=== PATIENT | female | born 1975 | race Caucasian/White ===

== ENCOUNTER 2025-01-31 17:28 | Emergency (ER) | payer MEDICARE ==
[~2025-01-31] VITALS: Ht 165.1 cm; Wt 96.3 kg
--- NOTE | 2025-01-31 17:51 | ELECTROCARDIOGRAPH REPORT ---
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 Levi Pisano Measurements Intervals [place] Rate: 116 P: 0 [place]: 0 QRS: 10 QRSD: 106 T: 88 QT: 329 QTc: 458 Interpretive Statements Atrial fibrillation ST elevation, consider inferior injury Electronically Signed On 02-05-2025 19:23:[address] Levi Pisano Please click the below link to view image of tracing.
[2025-01-31 18:07] LABS: MEAN PLATELET VOLUME 7.8 FL (7.4-10.4); RED CELL DISTRIBUTION WIDTH 13.8 % (11.5-14.5)
--- NOTE | 2025-01-31 18:26 | RADIOLOGY REPORT ---
CHEST RADIOGRAPH Indication: CP Technique: DI CHEST,SINGLE VIEW Comparison: None FINDINGS: 1 The cardiac silhouette is unremarkable. The lungs demonstrate right infrahilar/ right basilar airspace opacities. The pulmonary vasculature is unremarkable. There is no pleural effusion. There is no pneumothorax. IMPRESSION: Right infrahilar/ right basilar airspace opacification. Follow-up to resolution.
[2025-01-31 18:28] LABS: CREATININE 0.73 MG/DL (0.40-0.90); PRO BRAIN NATRIURETIC PEPTIDE < 30 PG/ML (0-125); TOTAL CARBON DIOXIDE 17.6 MMOL/L (24-32); eCRCL 86 ML/MIN; eGFR 85 ML/MIN
[2025-01-31] MEDS ORDERED: ACET-1008 PO (18:51)
[2025-01-31] MEDS ORDERED: IBUP-2766 PO (18:51)
[2025-01-31] MEDS ORDERED: ASPI-1265 PO (18:51)
--- NOTE | 2025-01-31 19:07 | Physician Documentation ---
History of Present Illness General Chief Complaint: Shortness of Breath Stated Complaint: CHEST PAIN Time Seen by MD: 18:15 Mode of Arrival: POV History of Present Illness Initial Comments This is a very pleasant 49-year-old female who presents for evaluation of generalized malaise, body aches, subjective fever, nausea, vomiting, as well as shortness a breath for the last five days. She has been evaluated at , received fluids, was discharged. However her symptoms have continued. She has not been tested for COVID. She isn't vaccinated against COVID. She does report shortness a breath, does not have prior history of asthma or COPD. The shortness a breath is exertional, not positional. She uses marijuana daily, smokes it. No prior history of cannabinoid hyperemesis. Medication Reconciliation Allergies: Coded Allergies: Penicillins (Verified Allergy, Unknown, 01/31/25) Scheduled Aspirin (Aspirin), 1 TAB PO DAILY, (Reported) Ibuprofen 100MG/5ML Susp* (Motrin 100 MG/5ML Susp.*), 5 ML PO Q8H, (Reported) Scheduled PRN Acetaminophen (Tylenol), 1 TAB PO QDAY PRN PRN for pain or fever, (Reported) Review of Systems ROS 10 point review of systems was performed and unless noted above in HPI is negative for acute process/complaint. Physical Exam Physical Exam Vital Signs: Temperature: 98.0, Source: Oral, Heart Rate: 113, Respiratory Rate: 18, BP: 146/100, Pulse Oximetry: 95, Weight: 96.300 Oxygen Flow Rate: 0 Physical Exam GENERAL: Awake, alert, oriented, GCS 15, no apparent distress, non-toxic appearing, answers questions, follows commands appropriately. Examined in bed 11., accompanied by has been in child HEENT: Atraumatic, normocephalic, pupils equal, extraocular muscles intact, sclerae anicteric, mucus membranes moist, oropharynx is clear, no stridor. NECK: supple, full active range of motion, trachea midline, no thyromegaly, no lymphadenopathy, no JVD. CARDIOVASCULAR: Tachycardic and regular rate/rhythm, no murmurs/gallops/rubs, Pulses are 2+ in all extremities and symmetric. Capillary refill less than 2 seconds. PULMONARY: Slightly labored, decreased air movement , mild respiratory distress, speaking in full sentences, bilateral right greater than left wheezing, no ronchi, no rales, no accessory muscle use. GASTROINTESTINAL: Soft, diffusely tender without guarding or rebound, non- distended, normal active bowel sounds, no organomegaly, no pulsatile masses, no CVA tenderness. NEUROLOGIC: Lucid with normal mental status. Normal facial symmetry. Moves all extremities symmetrically and with purpose. No truncal ataxia. Speech is fluid without evidence of dysarthria or aphasia, no focal deficits appreciated. MUSCULOSKELETAL: There is full range of motion of all extremities. There is no joint pain or joint swelling or joint erythema. There is no muscle pain or tenderness or swelling. EXTREMITIES: warm, well-perfused, no cyanosis, no clubbing, no edema, no acute deformities. Skin: warm, dry, no rashes or lesions, no jaundice, no petechiae orpurpura. No ecchymosis. PSYCHIATRIC: Normal affect, normal insight, normal concentration. Focused exam: [] Progress Results/Orders Results/Orders Orders - OSVALDO BARKLEY DO Covid19 Binax Poc Result Entry (01/31/25 18:58) * Rt Notification Q1H (01/31/25 19:09) Cta Chest Abdomen Pelvis (01/31/25 19:43) Straight Cath For Urine Sample (01/31/25 19:59) Completed Orders - OSVALDO BARKLEY DO Normal Saline 1000ml (0.9% Sodium Chlori (01/31/25 19:00) Ondansetron Inj. (Zofran 4mg/2ml Vial) (01/31/25 19:00) Haloperidol Lact. (Haldol) (01/31/25 19:00) Magnesium Sulf-Water 2g/50ml (Magnesium (01/31/25 19:00) Albuterol 2.5mg/3ml Nebule (Proventil 2. (01/31/25 19:10) Methylprednisolone Sod Succ (Solumedrol (01/31/25 19:10) Morphine 4mg/Ml Inj. (Morphine Inj.) (01/31/25 19:35) D-Dimer (01/31/25 19:33) Cta Chest Abdomen Pelvis (01/31/25 19:43) Hcg, Ur Ql (01/31/25 19:59) Drug Screen, Urine (01/31/25 19:59) Ua W/Microscopic, Cult If Ind (01/31/25 21:21) Lorazepam Tablet (Ativan Tablet) (01/31/25 23:00) Medications Received in ER Medications (Trade) Dose Ordered Sig/Stu Route PRN Reason Start Time Stop Time Status Last Admin Dose Admin Sodium Chloride 1,000 ml @ 1,000 mls/hr ONCE ONCE IV 01/31/25 19:00 01/31/25 19:59 DC 01/31/25 19:30 1,000 MLS/HR (Zofran 4mg/2ml vial) 8 mg ONCE ONCE IV 01/31/25 19:00 01/31/25 19:02 DC 01/31/25 19:19 8 MG (Haldol) 5 mg ONCE ONCE IVH 01/31/25 19:00 01/31/25 19:02 DC 01/31/25 19:25 5 MG Magnesium Sulfate 50 ml @ 100 mls/hr ONCE ONCE IV 01/31/25 19:00 01/31/25 19:29 DC 01/31/25 19:28 100 MLS/HR (Proventil 2.5 MG/3ML nebule) 10 mg ONCE ONCE NEB 01/31/25 19:10 01/31/25 19:12 DC 01/31/25 19:48 10 MG (SoluMEDROL 125mg inj) 125 mg ONCE ONCE IV 01/31/25 19:10 01/31/25 19:12 DC 01/31/25 19:23 125 MG (morphine inj.) 4 mg ONCE ONCE IV 01/31/25 19:35 01/31/25 19:36 DC 01/31/25 19:35 4 MG (Ativan tablet) 1 mg ONCE ONCE PO 01/31/25 23:00 01/31/25 23:01 DC 01/31/25 23:01 1 MG Vital Signs 01/31/25 01/31/25 01/31/25 01/31/25 17:38 18:00 18:13 19:35 Temp 98.0 Pulse 113 Resp 30 18 22 B/P (MAP) 146/100 Pulse Ox 93 95 O2 Delivery Nasal Cannula* O2 Flow Rate 0 6 FiO2 N/A 01/31/25 01/31/25 01/31/25 01/31/25 19:55 19:55 20:38 20:59 Temp 98.0 Pulse 103 110 102 Resp 18 18 24 B/P (MAP) 107/88 (94) Pulse Ox 95 93 96 O2 Flow Rate 8.0 8.0 FiO2 N/A 01/31/25 01/31/25 01/31/25 21:59 23:01 23:47 Temp 98.0 98.0 Pulse 122 113 Resp 20 18 16 B/P (MAP) 160/94 (116) 154/97 (116) Pulse Ox 90 96 O2 Flow Rate 3.0 3.0 FiO2 N/A N/A Laboratory Tests Test 01/31/25 18:00 01/31/25 20:16 01/31/25 21:21 01/31/25 21:27 White Blood Count 14.2 H Red Blood Count 5.64 H Hemoglobin 17.0 H Hematocrit 50.5 H Mean Corpuscular Volume 89.5 Mean Corpuscular Hemoglobin 30.1 Mean Corpuscular Hemoglobin Concent 33.6 Red Cell Distribution Width 13.8 Platelet Count 420 Mean Platelet Volume 7.8 Neutrophils (%) (Auto) 73.8 Lymphocytes (%) (Auto) 17.7 L Monocytes (%) (Auto) 7.3 Eosinophils (%) (Auto) 0.6 Basophils (%) (Auto) 0.6 Neutrophils # (Auto) 10.5 H Lymphocytes # (Auto) 2.5 Monocytes # (Auto) 1.0 H Eosinophils # (Auto) 0.1 Basophils # (Auto) 0.1 CBC Comment D-Dimer 1.30 H D-Dimer Comment Sodium Level 134 L Potassium Level 3.6 Chloride Level 101 Carbon Dioxide Level 17.6 L Anion Gap 15 Blood Urea Nitrogen 18 Creatinine 0.73 Estimated GFR/1.73 m2 85 BUN/Creatinine Ratio 24.7 H Glucose Level 146 H Calcium Level 9.4 Troponin I High Sensitivity 4 5 4 Pro-B-Type Natriuretic Peptide < 30 Albumin 3.4 Lipase 18 Chemistry Comments Troponin I High Sens Percent Delta 25 20 Troponin I Hi Sens Absolute Change 1 -1 Urine Specimen Description Non-specified Urine Color Yellow Urine Clarity Slightly cloudy Urine pH 6.0 Urine Specific [place] >=1.030 Urine Protein 100 H Urine Glucose (UA) Negative Urine Ketones >=80 Urine Occult Blood Moderate H Urine Nitrite Negative Urine Bilirubin Small Urine Urobilinogen 0.2 Urine Leukocyte Esterase Negative Urine RBC 3-10 Urine WBC 0-4 Urine Squamous Epithelial Cells Many Urine Bacteria 3+ Urine Culture Indicated Not ind Volume Urine Centrifuged 10 ml Urine HCG, Qualitative Negative Urine Comment Urine Opiates Screen Positive Urine Methadone Screen Negative Urine Fentanyl Screen Negative Urine Barbiturates Screen Negative Urine Phencyclidine Screen Negative Urine Amphetamines Screen Negative Urine Benzodiazepines Screen Negative Urine Cocaine Screen Negative Urine Cannabinoids Screen Positive Drug Screen Comment EKG/XRAY/CT/US/VASC/MRI EKG : Additional Comment EKG was obtained and interpreted by myself showing what appears to be sinus tachycardic, rate of 16, normal NH interval, narrow QRS, no QT prolongation, normal axis, no STEMI. Medical Decision Making Findings Facility Status: ED Holds, RME process The plan was discussed with the patient, who demonstrates clear understanding of the plan and is in agreement with the plan unless otherwise noted in the chart. All questions have been answered, all concerns were addressed unless otherwise documented. I was available throughout their ED stay for frequent reassessment and questions. Differential Diagnoses (considered and possible or likely): [Viral gastroenteritis, COVID, influenza, RSV, upper respiratory infection with the top of the viruses, bacterial pneumonia, dehydration, electrolyte derangement, asthma/COPD, less likely CHF or ACS] ??Differential Diagnoses (considered and unlikely, not requiring evaluation currently): [See above] MDM Data Please see [facility] for the following: Independent Historians and external Records Review. Historian: [Patient] Independent Historians: ?[Has been, record review] Medication Management: [Reviewed medication list] Social History and determinants: [Reviewed] Please see the body of the note for the following: Any independent interpretatio ns of ECG, imaging studies. All vitals signs/haemodynamics, ordered tests were independently reviewed and interpreted by myself. Nursing triage complaint and vitals reviewed, additional nursing notes were reviewed as available and I agree unless otherwise noted or documented in contradiction in the chart Vital Signs: Independently reviewed Labs: Independently interpreted Imaging: Independently interpreted Old Medical Records: Independently reviewed, see HPI for relevant summary and information Pulse Oximetry: [90% on 2 L] interpreted as [hypoxia] by me [Winding Inspector And Tester: Tachycardic Rate, Regular rhythm, no ectopy, sinus tachycard ia. reviewed and interpreted by me] Additionally notably showing: [Hemodynamics reviewed. The patient isn't febrile, tachycardic, improved with the pain management. No evidence of hypotension respiratory distress. Laboratory studies showed mild leukocytosis, elevated hemoglobin. Chemistry notable for dehydration. Glucose slightly elevated. Multiple troponins are negative. BNP is undetectable. Lipase is normal. D-dimer is elevated. UA is nondiagnostic for UTI. She is not . You tox is positive for opioids and cannabinoid. Chest x-ray initially showed questionable right basilar opacities. Because of elevated D-dimer CT angiography was obtained. It shows no pneumonia, shows some atelectasis and scarring. Thickened stomach. Proximal duodenum. This could be inflammatory process. Neoplasia can not be ruled out.] Tests considered but not ordered include: [See above] Social Determinants of Health Impact: Patient was evaluated in [facility], [facility] [place] access to healthcare due to below par ratio of patient to medical providers. [] Comorbid Conditions Impacting Present Evaluation and Care/Treatment: [None reported by the patient] Management Discussions with other Healthcare Providers: [None] Treatment and Disposition Medication Management (Given or considered): [Pain management]. See EMR for details Consideration for Hospitalization/Escalation/Deescalation of Care: Admission for observation has been considered, [however the patient is able to tolerate p.o., their symptoms are controlled, they are able to rely on oral medications, and their chief complaint/diagnosis can be managed on outpatient basis.] ?ED Course:?[Markedly improved.] ?Shared decision making:?[Patient is hemodynamically stable for discharge home with follow with their primary care provider. [ ] Specific and cautious return precautions provided and discussed with full understanding. Any incidental findings were also discussed and follow up recommendations given. [] All ques tions answered. Patient/family were able to verbalize back return precautions. Patient/family agree to plan. Copies of imaging and laboratory studies were provided.] Code status:?FULL Please see the full Electronic Medical Record for full details of nursing documentation, medications list, other records of complete past medical history and conditions, vital signs, laboratory studies, and any radiologic study interpretations by radiologists. Portions of this note were completed using [employer] dictation software and as a result there may exist minor errors in spelling. I have reviewed elements of past family and social history and agree as included in note. Departure Disposition: 01 HOME / SELF CARE / HOMELESS Impression: Primary Impression: Epigastric abdominal pain Additional Impressions: Nausea and vomiting Asthma exacerbation Condition: Improved Discharge Instructions: Asthma, Adult, [id number], Gastritis, Adult Additional Instructions: You need to follow-up with your primary care provider. Take the steroid Dosepak, use inhaler when you develop shortness a breath. You definitely had wheezing today that require steroids and breathing treatment. This may be a new diagnosis of asthma for you. With respect to her abdominal pain your CT showed a thickened stomach and proximal duodenum, with a this is concerning for gastritis/duodenitis. However, in very rare cases, thickening of stomach may be concerning for a stomach cancer. Follow-up with the PCP, get referral for EGD with a identification technician. Referrals: NO PRIMARY CARE PROVIDER (PCP) Prescriptions ONDANSETRON ODT 4mg tablet (ONDANSETRON ODT) 4 Mg Tab.rapdis 1 TAB PO Q6H PRN PRN for nausea/vomiting for 4 Days, #16 TAB 0 Refills Prov: OSVALDO BARKLEY DO 02/01/25 Dicyclomine HCl (Dicyclomine HCl) 20 Mg Tablet 1 TAB PO Q8H for irritable bowel symptoms for 10 Days, #30 TAB 0 Refills Prov: OSVALDO BARKLEY DO 02/01/25 Mag Hydrox/Al Hydrox/Simeth (Maalox Advanced Max-Str Susp) 400 Mg-400 Mg-40 Mg/5 Ml Oral.susp 20 ML PO Q6H for 5 Days, #355 ML 0 Refills Prov: OSVALDO BARKLEY DO 02/01/25 Pantoprazole Sodium (Protonix) 20 Mg Tablet.dr 1 TAB PO DAILY for 30 Days, #30 TAB 0 Refills Prov: OSVALDO BARKLEY DO 02/01/25 Albuterol Sulfate (Ventolin Hfa) 90 Mcg Hfa.aer.ad 2 PUFFS INH Q4HPRN PRN for wheezing for 30 Days, #18 GM 0 Refills Prov: OSVALDO BARKLEY DO 02/01/25 Methylprednisolone (Medrol Dosepak) 4 Mg Tab.ds.pk 0 PO UD, #21 TAB 0 Refills take 6 Pills Day 1, 5 Pills Day 2, 4 Pills Day 3, 3 Pills Day 4, 2 Pills Day 5 and 1 pill Day 6 Prov: OSVALDO BARKLEY DO 02/01/25 Education Educated: Patient Educated regarding: diagnosis, treatment, prognosis, need for follow up Signature Scribe Signature: No scribe Attestation: This note accurately reflects clinical decisions, work performed by myself, DO FILIPPO Adam NICHOLAS M DO Jan 31, 2025 19:07
[2025-01-31] MEDS: ondansetron/PF 4mg/2ml inj IV ONE (19:19)
[2025-01-31] MEDS: haloperidol lactate 5mg/ml inj IVH ONE (19:25)
[2025-01-31] MEDS: magnesium sulf-water 2g/50mL 50 ML IV ONE (19:28)
[2025-01-31] MEDS: normal saline 1000ml 1,000 ML IV ONE (19:30)
[2025-01-31] MEDS: morphine 4 MG/ML inj SYRINge IV ONE (19:35)
[2025-01-31] MEDS: albuterol 2.5 MG/3 ML nebule NEB ONE (19:48)
[2025-01-31 19:55] VITALS: PULSE 103; RESP 18; O2SAT 95
[2025-01-31 20:38] VITALS: PULSE 110; RESP 18; O2SAT 93
[2025-01-31 21:49] LABS: URINE HCG NEGATIVE (NEG)
[2025-01-31 21:55] LABS: LEUKOCYTE ESTERASE ,URINE NEGATIVE (Neg); NITRITES, URINE NEGATIVE (Neg); OCCULT BLOOD,URINE MODERATE (Neg)
[2025-01-31 21:57] LABS: UA COLLECTION TYPE NON-SPECIFIED
[2025-01-31 22:00] LABS: URINE AMPHETAMINE SCREEN NEGATIVE (Neg); URINE BARBITUATE SCREEN NEGATIVE (Neg); URINE BENZODIAZEPINES SCREEN NEGATIVE (Neg); URINE CANNABINOID SCREEN POSITIVE (Neg); URINE COCAINE SCREEN NEGATIVE (Neg); URINE METHADONE SCREEN NEGATIVE (Neg); URINE OPIATE SCREEN POSITIVE (Neg); URINE PHENCYCLIDINE SCREEN NEGATIVE (Neg)
[2025-01-31 22:05] LABS: SQUAMOUS EPITHELIAL CELL,UR MANY /LPF (FEW)
--- NOTE | 2025-01-31 23:56 | RADIOLOGY REPORT ---
EXAM: CT CTA CHEST ABDOMEN PELVIS W/ IV CONTRASTHistory: Chest pain out of proportion Comparison Study: None TECHNIQUE: Coverage: Thorax IV contrast: Administered Phases: Arterial Multiplanar 3-D Maximum Intensity Projection images (MIP) reconstructions were created by the technologist in the coronal and sagittal planes as part of the CT angiography protocol. Adverse events: None Medication laboratory values were reviewed to verify the patient meets criteria for contrast administration. All CT scans at this medical facility are performed using dose modulation techniques as appropriate to a performed exam including the following: Automated exposure control was utilized; adjustment of the MA and/or KV according to patient size; and use of iterative reconstruction technique. Radiation dose: CTDIvol 30.19 mGy, DLP 2282.33 mGy*cm. Findings: CT chest: Evaluation is degraded by respiratory motion. Lungs: There is minimal atelectasis/ scarring. Pleura: Unremarkable Heart/Great vessels: No cardiomegaly or pericardial effusion. The aorta is unremarkable. Mediastinum: Unremarkable. Soft tissues/Bones: Unremarkable CT abdomen/pelvis: Liver: Unremarkable. Spleen: Unremarkable. Pancreas: Unremarkable. Gallbladder: There is minimal stranding about the inferior aspect of the gallbladder. No gallbladder wall thickening. Adrenals: Unremarkable. Kidneys: Unremarkable. Pelvic Viscera: Prior hysterectomy. Vasculature: The aorta is unremarkable. Retroperitoneum: Unremarkable. Bowel: There is wall thickening and stranding about the distal stomach/ proximal duodenum. There is a dilated appearance of the proximal duodenum. Nonspecific fluid-filled appearance throughout the small bowel. Musculoskeletal: Unremarkable. Soft tissues: Unremarkable. Impression: 1. No acute vascular abnormality identified. 2. Wall thickening and stranding about the distal stomach/proximal duodenum as above most suggestive of an infectious/inflammatory process in the appropriate clinical setting. Neoplastic etiologies cannot be excluded. Dilated appearance of the proximal small bowel without clear transition point identified. Further clinical correlation is suggested. 3. Additional findings as detailed.
[2025-02-01] MEDS ORDERED: METH4TAB81 PO (01:52)
[2025-02-01] MEDS ORDERED: ALBU18HF2 INH (01:52)
[2025-02-01] MEDS ORDERED: ONDA-243 PO (01:52)
[2025-02-01] MEDS ORDERED: PANT20TA18 PO (01:52)
[2025-02-01] MEDS ORDERED: MAG-54 PO (01:52)
[2025-02-01] MEDS ORDERED: DICY20TA17 PO (01:52)
[2025-02-01 02:03] VITALS: BP 147/86; PULSE 78; RESP 16; TEMP 98; O2SAT 96
== END 2025-02-01 02:04 | disposition home or self-care (01) ==
LOC: ER 17:29
DX: J45.901 Unspecified asthma with (acute) exacerbation (principal); R10.13 Epigastric pain; R11.2 Nausea with vomiting, unspecified; I48.91 Unspecified atrial fibrillation; F12.90 Cannabis use, unspecified, uncomplicated; Z88.0 Allergy status to penicillin; Z79.82 Long term (current) use of aspirin; Z79.899 Other long term (current) drug therapy; Z20.822 Contact with and (suspected) exposure to COVID-19
CPT/HCPCS: 36415; 71045; 71275; 74177; 80048; 80305; 81001; 81025; 83690; 83880; 84484; 85025; 85379; 93005; 94644; 96365; 96375; 99285; A4353; A7015; J1630; J2270; J2405; J2919; J7030; Q9967; Z7610; 94640; 94760